=== PATIENT | female | born 1950 | race Caucasian/White ===

== ENCOUNTER 2023-01-18 00:17 | Emergency (ER) | payer SELFPAY ==
[2023-01-18 00:42] VITALS: BP 183/125
--- NOTE | 2023-01-18 01:23 | ED Physician Documentation ---
PD HPI UPPER EXT INJURY - Stated complaint Stated Complaint: RT RING FINGER/RING STUCK - Chief complaint Chief Complaint: General - History obtained from History obtained from: Patient, Other (dog hair clipper) - Additonal information Additional information: Patient presenting for evaluation of ring stuck to right ring finger.She states that she has recently been traveling and is unsure if this is the cause of the ring getting stuck. She has tried lotion and soap and oil without any improvement in her symptoms. Review of Systems Constitutional: denies: Fever Cardiac: denies: Chest pain / pressure GI: denies: Abdominal Pain Musculoskeletal: reports: Extremity pain PD PAST MEDICAL HISTORY - Allergies Allergies/Adverse Reactions: Allergies Allergy/AdvReac Type Severity Reaction Status Date / Time losartan AdvReac Itching Verified 01/18/23 00:38 PD ED PE NORMAL - General General: Alert and oriented X 3, No acute distress, Well developed/nourished - HEENT HEENT: Atraumatic - Respiratory Respiratory: No respiratory distress - Extremities Extremities: Other (Ring to right ring finger; Digit is warm, well-perfused With brisk cap refill And normal range of motion at all joints) Results - Vitals Vitals: Vital Signs - 24 hr 01/18/23 00:21 Temperature 37.2 C Heart Rate 59 L Respiratory 18 Rate Blood Pressure 183/125 H O2 Saturation 95 Oxygen O2 Source Room air PD Medical Decision Making - ED course Complexity details: re-evaluated patient ED course: Patient presenting for evaluation of a ring stuck to digit on right hand. Attem pted to remove it using a tourniquet technique without success. Patient and family gave verbal consent to have the ring cut and it was removed by JESÚS Alaniz. Patient is feeling much better with ring removed.Normal range of motion at all joints, no bony tenderness, digit is warm and well-perfused.Patient and Family advised on concerning symptoms to return for. Departure - Departure Disposition: 01 Home, Self Care Clinical Impression: Ring or other jewelry causing external constriction, initial encounter Condition: Stable Instructions: ED Contusion Finger Comments: Your ring was too tight on your finger requiring us to cut it off this evening. Please return to the emergency department with any concerns. Discharge Date/Time: 01/18/23 01:35
== END 2023-01-18 01:35 | disposition home or self-care (01) ==
LOC: ED 00:17
DX: S60.444A External constriction of right ring finger, initial encounter (principal); W49.04XA Ring or other jewelry causing external constriction, initial encounter
CPT/HCPCS: 99281; 99283